=== PATIENT | female | born 1955 | race Caucasian/White ===

== ENCOUNTER 2021-03-16 13:13 | Outpatient (REF) | payer OTHER, SELFPAY | END 2021-03-16 13:14 | disposition home or self-care (01) | LOC: HO.10HDLNP 13:13 | PROVIDERS: Visit Provider Otolaryngology | DX: B37.0 Candidal stomatitis (principal) | CPT/HCPCS: 87102; 87106 ==

== ENCOUNTER 2021-06-16 13:39 | Outpatient (RCR) | payer MEDICARE, SELFPAY | END 2021-07-22 10:28 | disposition home or self-care (01) | LOC: HO.PT 13:39 | PROVIDERS: PCP Internal Medicine; Visit Provider Physician Assistant | DX: M54.12 Radiculopathy, cervical region (principal); M75.101 Unspecified rotator cuff tear or rupture of right shoulder, not specified as traumatic | CPT/HCPCS: 97163 ==

== ENCOUNTER 2022-01-14 08:00 | Outpatient (RCR) | payer MEDICARE, SELFPAY ==
[2021-11-04 09:12] VITALS: BP 173/83; PULSE 77
== END 2022-03-08 08:44 | disposition home or self-care (01) ==
LOC: HO.PT 08:00
PROVIDERS: PCP Internal Medicine; Visit Provider Physician Assistant
DX: Z96.611 Presence of right artificial shoulder joint (principal)
CPT/HCPCS: 97110; 97112; 97140; 97161